=== PATIENT | female | born 1955 | race Caucasian/White ===

== ENCOUNTER → 2018-05-13 | Outpatient (CLI) | payer OTHER | LOC: BMCIMAGING 10:49 | PROVIDERS: ATTEND Podiatrist Foot & Ankle Surgery | DX: S82.422A Displaced transverse fracture of shaft of left fibula, initial encounter for closed fracture (principal); X58.XXXA Exposure to other specified factors, initial encounter; Y93.02 Activity, running ==

== ENCOUNTER → 2018-06-03 | Outpatient (CLI) | payer OTHER | LOC: BMCIMAGING 08:21 | PROVIDERS: ATTEND Podiatrist Foot & Ankle Surgery | DX: M84.364D Stress fracture, left fibula, subsequent encounter for fracture with routine healing (principal) ==

== ENCOUNTER → 2018-06-25 | Outpatient (CLI) | payer OTHER | LOC: BMCIMAGING 10:30 | PROVIDERS: ATTEND Podiatrist Foot & Ankle Surgery | DX: M84.364D Stress fracture, left fibula, subsequent encounter for fracture with routine healing (principal) ==

== ENCOUNTER → 2018-08-05 | Outpatient (CLI) | payer OTHER | LOC: BMCIMAGING 08:46 | PROVIDERS: ATTEND Podiatrist Foot & Ankle Surgery | DX: M84.364A Stress fracture, left fibula, initial encounter for fracture (principal) ==